=== PATIENT | male | born 1960 | race Caucasian/White ===

== ENCOUNTER 2018-07-18 10:04 | Outpatient (CLI) | payer BC, OTHER | END 2018-07-18 10:05 | disposition home or self-care (01) | LOC: SC 10:04 | PROVIDERS: ATTEND Internal Medicine Pulmonary Disease | DX: G47.33 Obstructive sleep apnea (adult) (pediatric) (principal) | CPT/HCPCS: 99203; 99212 ==

== ENCOUNTER 2023-04-08 08:29 | Outpatient (CLI) | payer BC ==
[2023-04-08 09:39] VITALS: BP 128/72
--- NOTE | 2023-04-08 09:48 | SLEEP CARE CONSULTATION ---
Information from patient questionnaire entered by Alvaro Delgado. I have reviewed and concur with the information entered by Alvaro Delgado. This document represents the service I personally performed and the decisions made by me, Ayde Lugo ARNP. History of Present Illness Service Date and Time: 04/08/2023 08 Reason for Visit: New patient, sleep apnea on CPAP therapy, Re-establish care Chief Complaint: reports: Unrefreshed sleep, Other (UPDATE SUPPLIES) Date of Onset: 15YRS Usual bedtime: 1030PM Time it takes to fall asleep: 30MIN Snores at night: Yes Observed to quit breathing while asleep: Yes Sleeps alone due to snoring: No Number of times waking at night: 3 Reasons for waking at night: reports: Bathroom Toss, Turn, or Twitch while sleeping: Yes Recalls having dreams: Yes Usually gets out of bed at: 7AM Feels refreshed in the morning: No Morning headache: No Sleepy or fatigued during the day: Yes Ever fallen asleep while driving: No Takes day naps: Yes Dreams during day naps: Yes Prior sleep studies: Yes Additional HPI information: HEIDI MCNEILL was previously diagnosed to have unknown, AHI unknown, obstructive sleep apnea-hypopnea syndrome and comes in today to re-establish care for CPAP therapy. He last had a study in about 2004 at [facility], he does not have a copy of this sleep study. - Parasomnia Symptoms Ever been unable to move upon waking from sleep: No Walks in sleep: No Talks in sleep: No Ever acted out dreams in sleep: No Ever felt weak in the knees when startled or emotional: No Bothered by creepy, crawly, restless sensations in legs: Yes Problems with memory or concentration: Yes CPAP Compliance Data - Data Reviewed with Patient Average duration of nightly device use: 8:18 hours Compliance rate %: 100 (30/30 days used) Current pressure setting (cmH2O): 14 Average residual AHI: 0.5 Compliance data discussion: He has a REMstar by [employer] that he received around 2004. He usually gets his supplies from the internet. He uses a nasal pillows mask, Resmed Airfit P10. He does have a back up mask. He changes his cushion about 3 months or so regularly. Subjective Patient concerns: denies: aerophagia, mask discomfort, air blowing in eyes, mask leak noise, condensation in mask/hose, nasal congestion, dry mouth, nose, throat, epistaxis Observed to snore while using device: No Current pressure setting perceived as: comfortable On therapy, patient: reports: sleeping better, awakening more refreshed, being more awake and alert during the day, more rested overall, drowsiness while driving (on long trips mostly) Initial Hessel Sleepiness Scale score: 12 (04/08/23) Past Medical History Past Medical History: reports: Diabetes Social History The patient's occupation is a RE. Patient is and lives in [place]. Have you smoked in the past 12 months: No Alcohol use: Yes Alcohol amount and frequency: 2 DAILY Caffeine use: Yes Caffeine amount and frequency: 2 DAILY Family History Family history of sleep disordered breathing: Yes Family Hx Sleep Apnea: Father: Snoring, Sibling: Snoring, Sleep apnea - Treated Allergies and Home Medications Known drug allergies: No Drug allergies reviewed: Yes Home medication list reviewed: Yes Allergy and home medication list: Medications: Metformin 1000 mg daily Dapaglifozin 5 mg daily Rosuvastatin 20 mg daily Review of Systems Weight gain over past 5 years: 15 Weight loss over past 5 years: 30 Cardiovascular: denies: high blood pressure Respiratory: denies: shortness of breath Gastrointestinal: denies: heartburn Urinary: reports: frequency, urgency Neurological: denies: headaches Psychiatric: denies: anxiety, depression Ear/Nose/Throat: reports: nasal congestion, injury to nose, wisdom teeth removed. denies: tonsillectomy Endocrine: reports: sluggishness Musculoskeletal: reports: joint pain, back pain Immunologic: reports: sneezing Physical Exam Vital signs obtained and entered by: ALVARO Rodriguez MA Blood Pressure: 128/72 (left arm) Cuff size: regular Heart Rate: 73 O2 Saturation: 98 Height: 5 ft 9 in Weight: 220 lb 6.4 oz Body Mass Index: 32.5 BMI Classification: Obese Neck circumference: 17.5 Heart: regular rate and rhythm Lungs: clear bilaterally Impression and Plan 1. Obstructive Sleep Apnea-Hypopnea Syndrome, unknown, with good treatment compliance and good apnea control. On CPAP therapy, the patient has better sleep quality and is more rested overall. He has a REMstar CPAP set at 14 cmH2O that he thinks he received in 2004. We do not have a copy of his last sleep study and it has been at least 15 years since his last sleep study. I will order a PSG/HST to verify diagnosis and severity. He needs a prescription to get a replacement CPAP. I will complete this so he can get his replacement. He is eligible for a new CPAP but he does not know what his cost would be to replace it through his insurance. He decided not to update his device at this time. He does not want to be setup with a DME at this time. He will continue to purchase his supplies on his own. Patient's apnea severity and rationale for treatment to reduce apnea, improve sleep quality and reduce cardiovascular and cerebrovascular events was reviewed. I also reviewed the benefit of consistent device use of CPAP for diabetes and RLS. 2. Obesity, unspecified. Currently patients BMI is 32.5. Obesity increases the risk of apnea, CPAP pressure requirements and overall health risks especially cardiovascular and diabetes. Thus patient is advised to lose weight. * Continue CPAP at 14 cmH2O, except for night of sleep study * Schedule polysomnography +- manual CPAP titration study and return in 1-2 weeks after the study to discuss result and initiate therapy. * Avoid long distance driving or driving when feeling sleepy. * Avoid alcohol, sedative and muscle relaxant around bedtime. * Attempt to lose weight. * Review instructions provided by trained office staff on how to prepare for the sleep study. * Return for follow-up after sleep study completed. Counseling Topics: Spare mask, Weight loss health impact Visit Type: In Office Time Spent with Patient (minutes): 33 Provider Statement: I spent 100% of the Face to Face Visit with the patient with greater than 50% spent counseling the patient and coordination of care.
== END 2023-04-08 08:30 | disposition home or self-care (01) ==
LOC: SC 08:29
PROVIDERS: ATTEND Nurse Practitioner Family
DX: G47.33 Obstructive sleep apnea (adult) (pediatric) (principal); E66.9 Obesity, unspecified; Z68.32 Body mass index [BMI] 32.0-32.9, adult
CPT/HCPCS: 99203; 99212

== ENCOUNTER 2023-05-18 09:21 | Outpatient (CLI) | payer BC | END 2023-05-18 09:22 | disposition home or self-care (01) | LOC: SC 09:21 | PROVIDERS: ATTEND Nurse Practitioner Family | DX: G47.33 Obstructive sleep apnea (adult) (pediatric) (principal); R09.02 Hypoxemia; Z68.32 Body mass index [BMI] 32.0-32.9, adult | CPT/HCPCS: 95806 ==

== ENCOUNTER 2023-06-02 14:32 | Outpatient (CLI) | payer BC ==
--- NOTE | 2023-06-02 14:47 | Sleep Patient Instructions ---
Sleep Center Visit Summary - Patient Visit Information Reason for Visit: Sleep Study Followup - Patient Instructions Additional Instructions: You were here for follow up of CPAP therapy. You will be continued on CPAP therapy with pressure at 14 cmH2O. You should follow up with sleep care in 12 months. You may contact us sooner for any questions or concerns. - Clinic Information Contact: [facility] [address] [place] [address] [email or web address] T: [phone]
--- NOTE | 2023-06-02 14:50 | SLEEP CARE CONSULTATION ---
Information from patient questionnaire entered by Sophy Delgado. I have reviewed and concur with the information entered by Sophy Delgado. This document represents the service I personally performed and the decisions made by , Ayde Lugo ARNP. History of Present Illness Service Date and Time: 06/02/2023 1432 Initial Colton Sleepiness Scale score: 12 (04/08/23) Current Colton Sleepiness Scale score: 16 (06/02/23) Additional HPI information: HEIDI CMNEILL returns for follow up and results of the recently performed home sleep study. His sleep study showed severe obstructive sleep apnea with an average AHI of 30.7 and madai oxygen saturation of 86%. I explained the pathophysiology behind obstructive sleep apnea. We then spent quite a bit of time discussing different treatment options. For mild obstructive sleep apnea, surgery and oral appliance are alternatives to nasal CPAP therapy but in moderate or severe cases, nasal CPAP is the most effective and reliable treatment. I reviewed the impact of weight changes on sleep apnea and strongly recommended losing weight. He is currently on a CPAP. The patient will continue with the nasal CPAP therapy set at 14 cmH20. Patient counseled not drink alcohol less than 4 hours before bedtime as it can increase snoring and apnea. Patient was cautioned about risks of drowsy driving until sleepiness symptoms resolve. Patient denies drowsy driving. Sleep Study - Results Type of Sleep Study: Home sleep study (COMPLETED 05-18-23) Prior sleep studies: Yes Polysomnography/Home Sleep Study results: Physician Impression: The quality of the study is good. The length of the study is adequate (> 240 minutes). Please also see the tabulated and graphic data. 1. Obstructive Sleep Apnea-Hypopnea (ICD-10 G47.33), severe, with an AHI of 30.7 /hr and madai SaO2 of 86%. During the study, the patient had 132 apneas (132 obstructive, 0 central, 0 mixed) and 138 hypopneas. The longest episode lasted 83.5 seconds. The respiratory events occur red more frequently during supine sleep (supine AHI was 48.9 and non-supine, 23.44). 2. Hypoxemia (ICD-10 R09.02), mild, with the lowest oxygen saturation of 86 % and 2.9 minutes with SaO2 under 90%. Baseline oxygen saturation was normal (Average oxygen saturation was 94%). Allergies and Home Medications Known drug allergies: No Drug allergies reviewed: Yes Home medication list reviewed: Yes (no changes) Allergy and home medication list: Allergies No Known Drug Allergies Allergy (Verified 06/01/23 11:49) Review of Systems Review of systems same as previous: Yes (no changes) Physical Exam Vital signs obtained and entered by: SOPHY Rodriguez MA Blood Pressure: 102/64 (LEFT ARM) Cuff size: regular Heart Rate: 80 O2 Saturation: 98 Height: 5 ft 9 in Weight: 228 lb Body Mass Index: 33.6 BMI Classification: Obese Impression and Plan 1. Obstructive Sleep Apnea-Hypopnea Syndrome, severe, as seen on sleep study. On CPAP therapy, the patient has better sleep quality and is more rested overall. He states he still has problems with daytime fatigue. I explained to him that his CPAP therapy shows significant improvement of his sleep apnea and I do not see any other issues with his treatment. He should follow-up with his primary care doctor for further evaluation of his symptoms. He voiced understanding and agreement. Patient's apnea severity and rationale for treatment to reduce apnea, improve sleep quality and reduce cardiovascular and cerebrovascular events was reviewed. I also reviewed the benefit of consistent device use of CPAP for diabetes and RLS. We will followup with him next year. 2. Hypoxemia, mild, with a madai oxygen saturation of 86% and 2.9 minutes spent under 90%. His baseline oxygen saturation was normal with an average oxygen saturation of 94%. 3. Obesity, unspecified. Currently patients BMI is 33.6. Obesity increases the risk of apnea, CPAP pressure requirements and overall health risks especially cardiovascular and diabetes. Thus patient is advised to lose weight. * Continue CPAP pressure at 14 cmH2O * Notify me if snoring with mask or feeling that the pressure is too much or too little * Attempt to lose weight * Call this office if any problems using CPAP * Return for follow up in 1 year, or sooner if concerns arise Counseling Topics: Weight loss health impact Visit Type: In Office Time Spent with Patient (minutes): 15 Provider Statement: I spent 100% of the Face to Face Visit with the patient with greater than 50% spent counseling the patient and coordination of care.
[2023-06-02 14:53] VITALS: BP 102/64; O2SAT 98
== END 2023-06-02 14:33 | disposition home or self-care (01) ==
LOC: SC 14:32
PROVIDERS: ATTEND Nurse Practitioner Family
DX: G47.33 Obstructive sleep apnea (adult) (pediatric) (principal); R09.02 Hypoxemia; E66.9 Obesity, unspecified; Z68.33 Body mass index [BMI] 33.0-33.9, adult
CPT/HCPCS: 99212